=== PATIENT | male | born 1965 | race Two or more races ===

== ENCOUNTER 2020-02-13 06:36 | Emergency (ER) | payer SELFPAY ==
[~2020-02-13] VITALS: Ht 182.9 cm; Wt 93.0 kg
--- NOTE | 2020-02-13 06:55 | NUR ---
PT BIB EMS C/O NECK PAIN, BACK PAIN RADIATING TO R LEG S/P SLIP & FALL X2DAYS NO KO, A/OX3 VSS TO ER BED [address]
--- NOTE | 2020-02-13 07:02 | NUR ---
cervical collar applied
[2020-02-13 08:49] LABS: BASOPHILS # (AUTO) 0.1 /CMM (0.0-0.2); BASOPHILS % (AUTO) 1.3 % (0.0-2.0); EOSINOPHILS % (AUTO) 1.7 % (0.0-6.0); HEMATOCRIT 40 % (39-51); HEMOGLOBIN 12.5 g/dL (13.5-17.5); LYMPHOCYTES # (AUTO) 1.6 /CMM (0.8-4.8); LYMPHOCYTES % (AUTO) 33.6 % (20.0-44.0); MEAN CORPUSCULAR HGB CONC 31 g/dl (31.0-36.0); MEAN CORPUSCULAR VOLUME 83 fL (80-96); MONOCYTES # (AUTO) 0.7 /CMM (0.1-1.30); NEUTROPHILS # (AUTO) 2.3 /CMM (1.8-8.9); NEUTROPHILS % (AUTO) 49.4 % (43.0-81.0); PLATELET COUNT (AUTO) 403 /CMM (150-450); RED BLOOD CELL COUNT(AUTO) 4.79 MIL/uL (4.5-6.0); WHITE BLOOD COUNT (AUTO) 4.7 K/uL (4.3-11.0)
[2020-02-13 08:58] LABS: CALCIUM, SERUM 8.8 mg/dL (8.5-10.1); CARBON DIOXIDE 28 mmol/L (21-32); CHLORIDE 104 mmol/L (98-107); GLUCOSE 75 mg/dL (74-106); POTASSIUM 4.8 mmol/L (3.5-5.1); SODIUM SERUM 139 mmol/L (136-145); UREA NITROGEN, BLOOD 16 mg/dL (7-18)
[2020-02-13] MEDS ORDERED: GABA-534 PO (08:58)
[2020-02-13 09:01] LABS: ALCOHOL, BLOOD < 3 mg/dL (0-0)
[2020-02-13] MEDS ORDERED: CT SWABBABLE VALVE TRANS SET 1 EA INFUS.SET MC ONE (09:07)
[2020-02-13] MEDS ORDERED: IOHEXOL-300 100 ML VIAL IV ONE (09:07)
[2020-02-13] MEDS ORDERED: IV NS 0.9% 250 ML IV ONE (09:07)
--- NOTE | 2020-02-13 10:03 | NUR ---
PAGED [facility].
--- NOTE | 2020-02-13 11:08 | NUR ---
ISELA GLASER CALLED FOR HOMELESS DC/RESOURCES
--- NOTE | 2020-02-13 11:15 | NUR ---
LAZARO WEISS AT BEDSIDE
--- NOTE | 2020-02-13 11:45 | NUR ---
Social service consult requested by MD for homeless resources. Per chart review and MD notes, pt is a 54-year-old male with a past medical history of spinal stenosis with radiculopathy presenting to the emergency department for aching neck and back pain. The patient endorses a slip and fall 2 days ago as well as this morning. He reports hitting his head both times. He does not know if he lost consciousness. He has had progressive worsening neck pain, moderate and aching with increased pain with movement of his neck. He also endorses lower back pain radiating down his right leg. He does not endorse numbness to the groin area. The patient does not endorse focal weakness or numbness or tingling to the extremities. He has not had any incontinence or retention of urine or stool. He does not endorse any chest or abdominal trauma. PASTA MAKER met with the pt bedside. PASTA MAKER introduced self, explained the role of the SW and purpose of the visit. Pt is alert and oriented x 4. Pt's mood is congruent. Pt reports to be homeless. Pt is not forthcoming with information. Pt states, he needs a cane and some clothes. Both cane and clothing were provided to the pt. PASTA MAKER provided pt with homeless resource packet and explained in detail regarding bus pick-up locations for [facility]. PASTA MAKER informed the pt. the closest bus pick-up location to [facility] on [facility]. Pt understood. Pt was provided with a TAP card and food as well. PASTA MAKER provided pt with active listening, supportive counseling and validation of feelings. Homeless Patient waiver form was placed in pt's chart for him to sign upon discharge. PASTA MAKER updated pt's RN and CRN Gener regarding pt's discharge plan. PASTA MAKER is available, as needed.
[2020-02-13] MEDS ORDERED: ACETAMINOPHEN ES 500 MG TABLET ONE (12:06)
[2020-02-13] MEDS: ACETAMINOPHEN ES 500 MG TABLET PO ONE (12:11)
--- NOTE | 2020-02-13 12:32 | NUR ---
IV removed. Catheter intact and site benign. Pressure and 4x4 applied to site. No bleeding noted.Patient given written and verbal discharge instructions. Patient verbalizes understanding of instructions. Patient is ambulatory with use of cane. Refuses offer of detention placement. Patient given list of available shelters in surrounding area. patient provided w clothes, name band removed, all belongings returned to patient. Provided w sandwich and drinks. Assisted to the waiting room by [employer] by [employer].
[2020-02-13 12:35] VITALS: BP 141/101
== END 2020-02-13 12:41 | disposition home or self-care (01) ==
LOC: ER 06:36
DX: S14.159A Other incomplete lesion at unspecified level of cervical spinal cord, initial encounter (principal); S09.8XXA Other specified injuries of head, initial encounter; J93.9 Pneumothorax, unspecified; G89.29 Other chronic pain; F41.9 Anxiety disorder, unspecified; F32.9 Major depressive disorder, single episode, unspecified; F17.200 Nicotine dependence, unspecified, uncomplicated; Z79.899 Other long term (current) drug therapy; W01.0XXA Fall on same level from slipping, tripping and stumbling without subsequent striking against object, initial encounter; Y93.89 Activity, other specified; Y92.89 Other specified places as the place of occurrence of the external cause; Y99.8 Other external cause status
CPT/HCPCS: 36415; 70450; 71045; 71260; 72125; 74177; 80048; 80307; 85025; 85610; 87081; 93005; 99285; J7050; L0172; Q9967; G0480